=== PATIENT | male | born 1935 | race Caucasian/White ===

== ENCOUNTER → 2019-03-29 | Outpatient (CLI) | payer OTHER | LOC: CAT 07:54 | DX: Z13.6 Encounter for screening for cardiovascular disorders (principal); E78.00 Pure hypercholesterolemia, unspecified; I25.10 Atherosclerotic heart disease of native coronary artery without angina pectoris ==

== ENCOUNTER 2020-08-19 19:00 | Emergency (ER) | payer OTHER ==
[~2020-08-19] VITALS: Ht 177.8 cm; Wt 68.0 kg
[2020-08-19 19:02] VITALS: BP 146/90
[2020-08-19] MEDS ORDERED: KEFLEX250 MG PO (21:18)
[2020-08-19] MEDS ORDERED: CEPHALEXIN500 MG PO (21:20)
== END 2020-08-19 20:09 | disposition home or self-care (01) ==
LOC: ER 19:00
DX: S81.812A Laceration without foreign body, left lower leg, initial encounter (principal); W01.118A Fall on same level from slipping, tripping and stumbling with subsequent striking against other sharp object, initial encounter; Y93.89 Activity, other specified; Y92.89 Other specified places as the place of occurrence of the external cause; Y99.8 Other external cause status

== ENCOUNTER 2020-09-02 13:00 | Emergency (ER) | payer OTHER ==
[~2020-09-02] VITALS: Ht 182.9 cm; Wt 74.8 kg
[~2020-09-02 13:00] MED LIST: CEPHALEXIN500 MG PO; KEFLEX250 MG PO
[2020-09-02 13:04] VITALS: BP 169/92
[2020-09-02] MEDS ORDERED: CIPRO500 M1 PO (13:13)
[2020-09-02] MEDS ORDERED: BACTRIM DS TAB1 EAC1 PO (13:13)
== END 2020-09-02 14:27 | disposition home or self-care (01) ==
LOC: ER 13:00
DX: L03.116 Cellulitis of left lower limb (principal)